=== PATIENT | male | born 1945 | race Caucasian/White ===

== ENCOUNTER 2024-01-03 10:06 | Emergency (ER) | payer OTHER, BC, SELFPAY ==
[2024-01-03 10:12] VITALS: BP 132/67
--- NOTE | 2024-01-03 10:47 | ED.GENMED ---
History of Present Illness
<JOHANN Morales Jr. Last Filed: 01/03/24 14:55>
General
Chief Complaint: Fall
Source: patient, ambulance crew and correction
Exam Limitations: dementia
Time Seen by Provider: 01/03/24 10:08
Nursing documentation reviewed up to this point in time: agreed with
Travel History
Have you had any contact with someone who has COVID-19?: No
Do you have any symptoms of coronavirus? Fever > 100 degrees, chills, cough, shortness of breath, sore throat, loss of taste or smell, muscle aches, or headache?: No
History of Present Illness
History of Present Illness:
78-year-old male with documented dementia though is alert and oriented here, atrial fibrillation currently on Eliquis hypertension cardiomyopathy diabetes and CKD presenting to the emergency department today with concerns of multiple falls while at
[facility]. He was recently transferred from [facility] to [facility]. Few days ago. He is fallen a few times since that hit his right sided forehead a few days ago. Denies loss conscious denies any headache his main concern is his penis he
claims it has been very itchy and painful worsening over the past few weeks but specifically over the past few days. He does notice skin changes to his glans.
Review of Systems
<Nik Bui Jr., PA-C - Last Filed: 01/03/24 14:55>
Review of Systems
Allergies reviewed?: Yes
All Other Systems: ROS reviewed and negative except as documented in HPI and ROS
Phy Exam
<JOHANN Morales Jr. Last Filed: 01/03/24 14:55>
Physical Exam
Physical Exam:
GENERAL: Alert , in no apparent distress
EYE: pupils equal and reactive
NECK: Supple, no significant adenopathy.
ENT: Slight bruising to the right forehead 2 x 2 cm o/p clr, mmm.
CARDIAC: Regular rate and rhythm .
LUNGS: Clear breath sounds bilaterally, no acute respiratory distress, no wheezes/rales/rhonchi
ABDOMEN: Glans of penis with dry grayish discoloration surrounding redness and warmth of distal penis soft, without focal tenderness, no r/g, no cvat
NEUROLOGICAL: Alert and oriented, no focal neuro deficits
SKIN: Warm and dry, skin intact.
MUSCULOSKELETAL: No edema, well perfused.
PSYCH: Normal and appropriate interaction.
Course
<Nik Bui Jr., PA-C - Last Filed: 01/03/24 14:55>
Orders/Labs/Results
Orders:
Orders
01/03/24 10:12
CT Cervical Spine W/o Iv Contr Urgent
Comment:
Reason For Exam: fall neck pain
CT Head W/o Iv Contrast Urgent
Comment:
Reason For Exam: fall hit head
01/03/24 10:44
Bedside Glucose- Treatment ONCE
01/03/24 10:48
BMP [Basic Metabolic Panel] Urgent
CBC/With Diff [Complete Blood Count/With Diff] Urgent
01/03/24 13:43
Cephalexin Monohydrate [Keflex] 500 mg PO NOW STA
01/03/24 13:44
Cephalexin Monohydrate [Keflex] 500 mg .ROUTE .STK-MED ONE
Abnormal Lab Results
01/03/24 01/03/24
10:48 10:52
WBC 15.1 H 10^3/uL
(4.8-10.8)
RBC 2.46 L 10^6/uL
(4.70-6.10)
Hgb 8.4 L g/dL
(13.0-18.0)
Hct 24.3 L %
(39.0-52.0)
MCV 98.8 H fL
(80.0-94.0)
MCH 34.1 H pg
(27.0-31.0)
RDW 15.2 H %
(11.5-14.5)
Plt Count 439 H 10^3/uL
(130-400)
Abs Immat Gran (auto) 0.1 H 10^3/uL
(0-0.05)
Absolute Neuts (auto) 13.0 H 10^3/uL
(1.4-6.5)
Absolute Lymphs (auto) 0.9 L 10^3/uL
(1.2-3.4)
Absolute Monos (auto) 1.1 H 10^3/uL
(0.1-0.6)
Neutrophils % 85.8 H %
(42.2-75.2)
Lymphocytes % 5.8 L %
(20.5-51.1)
Chloride 96 L mmol/L
(98-107)
BUN 47 H mg/dl
(9-20)
Creatinine 6.4 H* mg/dL
(0.7-1.3)
Calcium 10.5 H mg/dl
(8.4-10.2)
POC Glucose 104 H mg/dl
(70-99)
01/03/24 10:48
01/03/24 10:48
Vital Signs
Initial and Last Documented VS:
Initial Vital Signs
Temp Pulse Resp BP Pulse Ox
97.9 F 88 20 132/67 99
01/03/24 10:12 01/03/24 10:12 01/03/24 10:12 01/03/24 10:12 01/03/24 10:12
Last Documented Vital Signs
Temp Pulse Resp BP Pulse Ox
97.9 F 81 19 134/73 97
01/03/24 10:12 01/03/24 13:00 01/03/24 13:00 01/03/24 13:00 01/03/24 13:00
<Twan AndersonRoger Moon, DO - Last Filed: 01/03/24 11:45>
Orders/Labs/Results
Orders:
Orders
01/03/24 10:12
CT Cervical Spine W/o Iv Contr Urgent
Comment:
Reason For Exam: fall neck pain
CT Head W/o Iv Contrast Urgent
Comment:
Reason For Exam: fall hit head
01/03/24 10:44
Bedside Glucose- Treatment ONCE
01/03/24 10:48
BMP [Basic Metabolic Panel] Urgent
CBC/With Diff [Complete Blood Count/With Diff] Urgent
01/03/24 13:43
Cephalexin Monohydrate [Keflex] 500 mg PO NOW STA
01/03/24 13:44
Cephalexin Monohydrate [Keflex] 500 mg .ROUTE .STK-MED ONE
Abnormal Lab Results
01/03/24 01/03/24
10:48 10:52
WBC 15.1 H 10^3/uL
(4.8-10.8)
RBC 2.46 L 10^6/uL
(4.70-6.10)
Hgb 8.4 L g/dL
(13.0-18.0)
Hct 24.3 L %
(39.0-52.0)
MCV 98.8 H fL
(80.0-94.0)
MCH 34.1 H pg
(27.0-31.0)
RDW 15.2 H %
(11.5-14.5)
Plt Count 439 H 10^3/uL
(130-400)
Abs Immat Gran (auto) 0.1 H 10^3/uL
(0-0.05)
Absolute Neuts (auto) 13.0 H 10^3/uL
(1.4-6.5)
Absolute Lymphs (auto) 0.9 L 10^3/uL
(1.2-3.4)
Absolute Monos (auto) 1.1 H 10^3/uL
(0.1-0.6)
Neutrophils % 85.8 H %
(42.2-75.2)
Lymphocytes % 5.8 L %
(20.5-51.1)
Chloride 96 L mmol/L
(98-107)
BUN 47 H mg/dl
(9-20)
Creatinine 6.4 H* mg/dL
(0.7-1.3)
Calcium 10.5 H mg/dl
(8.4-10.2)
POC Glucose 104 H mg/dl
(70-99)
01/03/24 10:48
01/03/24 10:48
Vital Signs
Initial and Last Documented VS:
Initial Vital Signs
Temp Pulse Resp BP Pulse Ox
97.9 F 88 20 132/67 99
01/03/24 10:12 01/03/24 10:12 01/03/24 10:12 01/03/24 10:12 01/03/24 10:12
Last Documented Vital Signs
Temp Pulse Resp BP Pulse Ox
97.9 F 81 19 134/73 97
01/03/24 10:12 01/03/24 13:00 01/03/24 13:00 01/03/24 13:00 01/03/24 13:00
<Nik Bui Jr., PA-C - Last Filed: 01/03/24 14:55>
MDM/Problems Addressed
MDM/Problems Addressed:
78-year-old male presenting to the emergency department today after multiple falls while at [facility]. He was just transferred there few days ago. CT scan here without evidence of acute injury to the head and neck normal neurologic evaluation.
Patient's main concern is discoloration to the tip of his penis which is oliver dusky and dry at the glans with surrounding redness and warmth mild tenderness palpation. No scrotal tenderness. He denies any particular treatment for this at this
point. CT scan of the head and neck was performed that did not show any emergent findings. Labs showing elevated white count to 15.1 hemoglobin 8.4 he was documented to having this chronically. Denies any acute bleeding. Creatinine 6.4 BUN of 47
does have end-stage renal disease got dialysis this morning typically gets dialysis Friday. Patient's penile examination had some changes to the glans of the penis this was sent to urology who assessed this and felt there was an
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 They did recommend an antibiotic there are some surrounding redness and warmth as well as tenderness. Otherwise will follow-up
with urology. Stable for discharge.
<Nik Bui Jr., PA-C - Last Filed: 01/03/24 14:55>
*Critical Care Note
Total Time (30-74mins, 75-104mins- exclusive of procedures): Not Applicable
ED Attending Note
<Nik Bui Jr., PA-C - Last Filed: 01/03/24 14:55>
-
Portions of this chart may have been created with voice recognition software.� Occasional wrong word or��sound alike� substitutions may have occurred due to the inherent limitations of voice recognition software.
<Twan Moon, - Last Filed: 01/03/24 11:45>
ED Attending Note
Patient seen and examined by attending physician: Yes
I performed the substantive portion of visit, reviewed & personally made and approve the management plan that is documented in note by myself or STEPHANY.: Yes
ED Attending Note:
I agree with Ed's note.
Glans of penis has a well circumscribed lesion primarily on the right. Lesion is black in color, very tender. Pt is not circumcised but foreskin is easily retractable.
Neuro: non-focal
Lesion looks ischemic. 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 Conservative management.
From fall standpoint Head CT is NAD
Discharge Plan
Departure
Patient Disposition: Home (Routine Discharge)
Date of Disposition: 01/03/24
Time of Disposition: 13:43
Patient with high blood pressure during this ER visit?: No
Condition: Good
Covid-19: Not Applicable
Discharge Problem:
Penis disorder
Instructions: Wound Care (DC)
Prescriptions:
New
cephalexin 500 mg capsule
500 mg PO QID 7 Days Qty: 28 0RF
No Action
atorvastatin [Lipitor] 40 mg Tablet
40 mg PO DAILY
sennosides [senna] 8.6 mg Tablet
8.6 mg PO DAILY
acetaminophen [Tylenol] 325 mg Tablet
650 mg PO Q6HPRN PRN (Reason: mild pain)
donepezil [Aricept] 5 mg Tablet
5 mg PO HS
lidocaine 4 % Adhesive Patch,Medicated
1 patch TOPICAL DAILY
polyethylene glycol 3350 [Miralax] 17 gram Powder In Packet
17 g PO DAILY
sevelamer HCl 800 mg Tablet
1,600 mg PO AC
isosorbide mononitrate [Imdur] 30 mg Tablet Extended Release 24 Hr
30 mg PO DAILY
melatonin 3 mg Tablet
3 mg PO HS
clopidogrel [Plavix] 75 mg Tablet
75 mg PO DAILY
aspirin 81 mg Tablet,Delayed Release (Dr/Ec)
81 mg PO DAILY
temazepam 15 mg Capsule
15 mg PO HS
furosemide [Lasix] 80 mg Tablet
80 mg PO DAILY
pantoprazole [Protonix] 40 mg Tablet,Delayed Release (Dr/Ec)
40 mg PO DAILY
fosinopril 40 mg Tablet
40 mg PO DAILY
clotrimazole-betamethasone 1-0.05 % Cream
1 applic TOPICAL BID
vitamin B complex [B Complete] Tablet
1 tab PO QPM
metoprolol succinate [Toprol XL] 25 mg Tablet Extended Release 24 Hr
25 mg PO DAILY
ergocalciferol (vitamin D2) 1,250 mcg (50,000 unit) Capsule
1,250 mcg PO MO
doxazosin [Cardura] 2 mg Tablet
2 mg PO QPM
ezetimibe [Zetia] 10 mg Tablet
10 mg PO DAILY
Eliquis 5 mg Tablet
5 mg PO BID
Referrals:
Clem Shelton DO [Family Provider] -
Dao Licona MD [Active] - Follow up in 10 days
Activity Restrictions/Additional Instructions:
You came to the emergency department today after a fall. Here you had a CT scan that did not show any emergent findings. Your labs are at baseline. Your penis changes were discussed with urology and they believe that there could be a secondary
infection but otherwise you have changes due to being on dialysis. You should follow-up closely with urology as an outpatient. Return to the emergency department for any worsening, new or concerning symptoms.
Interventions
Interventions:
*Risk Screen - Suicide Last Done: 01/03/24 10:07
*General Assessment Last Done: 01/03/24 10:07
*Neglect/Abuse Screening Last Done: 01/03/24 10:07
*Nursing Disposition Last Done: 01/03/24 13:55
ED-Musculoskeletal Assessment Last Done: 01/03/24 11:00
ED- Neurological Assessment Last Done: 01/03/24 11:00
ED-Skin Assessment Last Done: 01/03/24 11:00
Discharge Date and Time
Discharge Date/Time: 01/03/24 13:57
Print Language: [id number]
[2024-01-03 10:55] LABS: Glucose - Point of Care 104 mg/dl (70-99)
[2024-01-03 11:00] VITALS: BP 139/74
[2024-01-03 11:08] LABS: % Basophils 0.4 % (0-2); % Eosinophils 0.6 % (0-6); % Immature Granulocytes 0.5 % (0-0.5); % Lymphocytes 5.8 % (20.5-51.1); % Monocytes 6.9 % (1.7-9.3); % Neutrophils 85.8 % (42.2-75.2); Absolute Basophils 0.1 10^3/uL (0-0.2); Absolute Eosinophils 0.1 10^3/uL (0-0.7); Absolute Immature Granulocytes 0.1 10^3/uL (0-0.05); Absolute Lymphocytes 0.9 10^3/uL (1.2-3.4); Absolute Monocytes 1.1 10^3/uL (0.1-0.6); Hematocrit 24.3 % (39.0-52.0); Hemoglobin 8.4 g/dL (13.0-18.0); Mean Corp Hgb Conc. 34.6 g/dL (33.0-37.0); Mean Corpuscular Hgb 34.1 pg (27.0-31.0); Mean Corpuscular Volume 98.8 fL (80.0-94.0); Mean Platelet Volume 8.6 fL (7.4-10.4); Nucleated Red Blood Cells % 0 % (-); Platelet Count 439 10^3/uL (130-400); Red Blood Cell Count 2.46 10^6/uL (4.70-6.10); Red Cell Dist. Width 15.2 % (11.5-14.5); White Blood Cell Count 15.1 10^3/uL (4.8-10.8)
[2024-01-03 11:34] LABS: Blood Urea Nitrogen 47 mg/dl (9-20); Calcium 10.5 mg/dl (8.4-10.2); Carbon Dioxide 24 mmol/L (22-30); Chloride 96 mmol/L (98-107); Glucose 99 mg/dl (70-99); Potassium 4.6 mmol/L (3.5-5.1); Sodium 136 mmol/L (135-145); eGFR 8.36
[2024-01-03 13:00] VITALS: BP 134/73
[2024-01-03] MEDS: KEFLEX 500 MG PO (13:46)
== END 2024-01-03 13:57 | disposition home or self-care (01) ==
LOC: EMR 10:06
PROVIDERS: Physician Assistant; EMERGENCY PHYSICIAN Emergency Medicine; FAMILY PHYSICIAN Internal Medicine
DX: N50.9 Disorder of male genital organs, unspecified (principal); I96 Gangrene, not elsewhere classified; S00.83XA Contusion of other part of head, initial encounter; W19.XXXA Unspecified fall, initial encounter; F03.90 Unspecified dementia, unspecified severity, without behavioral disturbance, psychotic disturbance, mood disturbance, and anxiety; I48.91 Unspecified atrial fibrillation; E11.22 Type 2 diabetes mellitus with diabetic chronic kidney disease; I12.0 Hypertensive chronic kidney disease with stage 5 chronic kidney disease or end stage renal disease; N18.6 End stage renal disease; Z99.2 Dependence on renal dialysis; I42.9 Cardiomyopathy, unspecified; R29.6 Repeated falls; Z79.01 Long term (current) use of anticoagulants
CPT/HCPCS: 99284; 70450; 72125; 80048; 82962; 85025